=== PATIENT | female | born 1975 | race Asian ===

== ENCOUNTER 2018-04-24 11:00 | Emergency (ER) | payer MEDICARE ==
[2018-04-24 11:26] LABS: BASOPHIL (%) 0.4 % (0-1); BASOPHIL COUNT 0.1 K/uL (0-0.1); EOSINOPHIL (%) 2.1 % (0-5); EOSINOPHIL COUNT 0.3 K/uL (0-0.3); HEMATOCRIT 39.7 % (36.0-46.0); IMMATURE GRANULOCYTE (%) 2.5 % (0.0-0.7); LYMPHOCYTE (%) 15.9 % (15-42); LYMPHOCYTE COUNT 2.1 K/uL (1.0-2.8); MCH 27.9 PG (29.0-34.0); MCHC 32.7 G/DL (30.0-36.0); MCV 85.2 FL (83-99); MONOCYTE (%) 6.8 % (3-12); MONOCYTE COUNT 0.9 K/uL (0-0.8); NEUTROPHIL (%) 72.3 % (45-76); NEUTROPHIL COUNT 9.7 K/uL (1.8-6.4); PLATELET COUNT 292 K/uL (156-360); RBC DIS.WIDTH-SD 40.5 % (39-53); RED BLOOD COUNT 4.66 M/uL (3.80-5.20); WHITE BLOOD COUNT 13.3 K/uL (4.1-10.2)
[2018-04-24 11:27] LABS: AMYLASE 53 IU/L (1-118); CHLORIDE 104 mEq/L (99-109); POTASSIUM 3.9 mEq/L (3.7-5.4); SODIUM 139 mEq/L (136-147)
[2018-04-24 11:29] LABS: GLUCOSE 109 mg/dL (70-99)
[2018-04-24 11:32] LABS: SERUM ETHYL ALCOHOL < 10 mg/dL
[2018-04-24 11:33] LABS: CREATININE 0.8 mg/dL (0.6-1.3); GFR ESTIMATE (CALCULATED) > 59 mL/min/
[2018-04-24 11:34] LABS: UREA NITROGEN (BUN) 11 mg/dL (9-23)
[2018-04-24 11:36] LABS: LIPASE 24 U/L (1.0-51.0)
[2018-04-24 11:42] LABS: QUANTITATIVE HCG < 4.0 MIU/ML
[2018-04-24] MEDS ORDERED: PERCOCET 5/31 TABLET PO (13:46)
== END 2018-04-24 14:01 | disposition home or self-care (01) ==
LOC: TRA 11:00
PROVIDERS: Emergency Medicine
DX: S42.101A Fracture of unspecified part of scapula, right shoulder, initial encounter for closed fracture (principal); S32.039A Unspecified fracture of third lumbar vertebra, initial encounter for closed fracture; W17.89XA Other fall from one level to another, initial encounter; Y92.008 Other place in unspecified non-institutional (private) residence as the place of occurrence of the external cause
CPT/HCPCS: 70450; 71260; 72125; 72129; 72132; 73030; 74177; 80048; 81003; 82150; 83690; 84702; 85025; 86850; 86900; 86901; 99281; 99285; G0480